=== PATIENT | male | born 1990 | race Caucasian/White ===

== ENCOUNTER 2017-04-15 20:29 | Emergency (ER) | payer OTHER ==
[2017-04-15 20:38] VITALS: PULSE 78; TEMP 98.2; BMI 47.6
[2017-04-15] MEDS ORDERED: SODIUM CHLORIDE 1,000 ML IV STA ×2 (20:51→22:23)
--- NOTE | 2017-04-15 20:52 | PDOC ---
History of Present Illness - General Chief Complaint: Blood Sugar Problem Stated Complaint: EVALUATION Time Seen by Provider: 04/15/17 20:40 History Source: Patient Exam Limitations: No Limitations - History of Present Illness Initial Comments: 04/15/17 23:54 27-year-old male with history of diabetes (poorly compliant with his medication regimen), presents to the ER for elevated blood sugar and paresthesias of the left flank on the day of arrival. Patient denies chest pain/shortness of breath/ nausea/vomiting/diarrhea/fever/chills. Patient denies cutaneous outbreak at the site of paresthesias. There is no previous history of herpes zoster. REVIEW OF SYSTEMS CONSTITUTIONAL: No fever, no chills, no fatigue EYES: No visual changes ENT: No ear pain, no sore throat CARDIOVASCULAR: No chest pain, no palpitations RESPIRATORY: No cough, no SOB GI: No abdominal pain, no nausea, no vomiting, no constipation, no diarrhea GENITOURINARY: No dysuria, no frequency, no hematuria MUSKULOSKELETAL: No backpain, no joint pain, no myalgias SKIN: No rash NEURO: No headache; + left flank paresthesia; EXAMINATION CONSTITUTIONAL: Awake and alert; Well-appearing; in no apparent distress HEAD: Normocephalic; atraumatic EYES: PERRL; EOM intact ENMT: External appears normal; normal oropharynx NECK: Supple; non-tender; no cervical lymphadenopathy CARD: Normal S1, S2; no murmurs, rubs, or gallops RESP: Normal chest excursion with respiration; breath sounds clear and equal bilaterally; no wheezes, rhonchi, or rales ABD: Soft, non-distended; non-tender; no palpable organomegaly, no palpable hernias EXT: Normal ROM in all four extremities; non-tender to palpation; distal pulses intact SKIN: Warm, dry, no rash NEURO: No focal neurological deficiencies. Past History - Past Medical History Allergies/Adverse Reactions: Allergies Allergy/AdvReac Type Severity Reaction Status Date / Time No Known Allergies Allergy Verified 11/14/15 22:10 Home Medications: Ambulatory Orders Metformin HCl 500 mg PO ONCE 04/15/17 Metformin HCl [Glucophage -] 1,000 mg PO BID #40 tablet 04/16/17 Asthma: Yes Diabetes: Yes Thyroid Disease: Yes - Immunization History Immunization Up to Date: No - Suicide/Smoking/Psychosocial Hx Smoking History: Never smoked Have you smoked in the past 12 months: No Hx Alcohol Use: No Drug/Substance Use Hx: No Substance Use Type: None *Physical Exam - Vital Signs Last Vital Signs Temp Pulse Resp BP Pulse Ox 98.2 F 78 20 151/100 99 04/15/17 20:35 04/15/17 20:35 04/15/17 20:35 04/15/17 20:35 04/15/17 20:35 ED Treatment Course - LABORATORY CBC & Chemistry Diagram: 04/15/17 21:00 04/15/17 21:00 Medical Decision Making - Medical Decision Making 04/15/17 23:58 Patient is a morbidly [place] 27-year-old male with history of diabetes who is poorly compliant with his medication regimen presented to the ER with hyperglycemia and left flank patchy paresthesias. EKG reveals no evidence of ischemia. Physical exam reveals no evidence of a vesicular rash. There is an isolated approximately 4 x 4 centimeters area of paresthesia located along the posterior axillary line within the intercostal space of T8-T10. CBC is within normal limit. CMP reveals hyperglycemia but no evidence of increased anion gap or any other electrolyte disturbances. Patient received IV fluids and insolent. I do not suspect DKA at this time. Will discharge with metformin with endocrinology follow-up. *DC/Admit/Observation/Transfer Diagnosis at time of Disposition: Hyperglycemia, History of paresthesia - Discharge Dispostion Disposition: HOME Condition at time of disposition: Stable - Referrals Referrals: Preston Carbajal MD [Staff Physician] - - Patient Instructions Printed Discharge Instructions: DI for Hyperglycemia -- Adult
[2017-04-15 21:10] LABS: BASOPHIL 0.7 % (0-2.0); EOSINOPHIL 2.5 % (0-4.5); MCH 26.8 pg (25.7-33.7); MCHC 33.6 g/dl (32.0-35.9); MEAN CELL VOLUME 79.9 fl (80-96); MEAN PLT VOLUME 9.2 fl (7.5-11.1); PLATELET COUNT 278 K/MM3 (134-434); RDW 13.9 % (11.9-15.9); WHITE BLOOD COUNT 8.1 K/mm3 (4.0-10.0)
[2017-04-15 21:13] LABS: URINE APPEARANCE CLEAR; URINE BILIRUBIN NEGATIVE (NEGATIVE); URINE BLOOD NEGATIVE (NEGATIVE); URINE COLOR STRAW; URINE GLUCOSE (UA) 3+ (NEGATIVE); URINE KETONE NEGATIVE (NEGATIVE); URINE NITRITE NEGATIVE (NEGATIVE); URINE PROTEIN NEGATIVE (NEGATIVE); URINE UROBILINOGEN NEGATIVE mg/dL (0.2-1.0)
[2017-04-15 22:00] LABS: ALBUMIN 3.8 g/dl (3.4-5.0); ALK PHOS 124 U/L (45-117); ANION GAP 8 (8-16); BILIRUBIN,TOTAL 0.5 mg/dL (0.2-1.0); CALCIUM 9.2 mg/dL (8.5-10.1); CO2 28 mmol/L (21-32); CREATININE 0.9 mg/dL (0.7-1.3); MAGNESIUM 2.2 mg/dL (1.8-2.4); SGOT/AST 24 U/L (15-37); SGPT/ALT 51 U/L (12-78)
[2017-04-15 22:03] LABS: GLUCOSE,RANDOM 441 mg/dL (74-106)
[2017-04-15] MEDS ORDERED: INSULIN REGULAR HUMAN 100 UNITS/ML *VIAL SQ ONE (22:23)
[2017-04-15 23:16] LABS: ACETONE SERUM NEGATIVE (NEGATIVE)
[2017-04-15 23:22] LABS: URINE LEUK ESTERASE Negative (NEGATIVE)
[2017-04-15 23:37] VITALS: BP 119/80
--- NOTE | 2017-04-16 09:05 | EKG ---
Test Reason : Blood Pressure : / mmHG Vent. Rate : 069 BPM Atrial Rate : 069 BPM P-R Int : 156 ms QRS Dur : 090 ms QT Int : 376 ms P-R-T Axes : 042 012 035 degrees QTc Int : 402 ms NORMAL SINUS RHYTHM WITH SINUS ARRHYTHMIA NORMAL ECG WHEN COMPARED WITH ECG OF 14-NOV-2015 22:37, NO SIGNIFICANT CHANGE WAS FOUND Confirmed by JACKI SCOTT MD ([id number]) on 04/16/2017 9:04:59 AM Referred By: Confirmed By:JACKI SCOTT MD
== END 2017-04-16 00:08 | disposition home or self-care (01) ==
LOC: JER 20:29
PROC: 3E013VG Introduction of Insulin into Subcutaneous Tissue, Percutaneous Approach (ICD-10-PCS; principal; 2017-04-15)
DX: E11.65 Type 2 diabetes mellitus with hyperglycemia (principal); Z79.84 Long term (current) use of oral hypoglycemic drugs; Z91.14 Patient's other noncompliance with medication regimen; E66.01 Morbid (severe) obesity due to excess calories; Z68.42 Body mass index [BMI] 45.0-49.9, adult
CPT/HCPCS: 36415; 80053; 81003; 82009; 83036; 83735; 85025; 93005; 93010; 96360; 96361; 96372; 99282-25

== ENCOUNTER 2022-12-01 02:21 | Emergency (ER) | payer OTHER ==
[2022-12-01 02:52] VITALS: BP 140/89; PULSE 95; RESP 20; TEMP 98.1; BMI 47.0
[2022-12-01 03:22] LABS: BASO % 1.3 % (0-2.0); EOS % 3.1 % (0-4.5); HEMATOCRIT 42.2 % (35.4-49); LYMPH % 31.3 % (8-40); MCH 25.3 pg (25.7-33.7); MCHC 33.1 g/dl (32.0-35.9); MEAN CELL VOLUME 76.4 fl (80-96); MEAN PLT VOLUME 8.5 fl (7.5-11.1); MONO % 5.9 % (3.8-10.2); NEUT % 58.4 % (42.8-82.8); PLATELET COUNT 319 10^3/uL (134-434); RBC 5.52 M/mm3 (4.00-5.60); RDW 15.2 % (11.9-15.9); WHITE BLOOD COUNT 9.1 K/mm3 (4.0-10.0)
[2022-12-01 03:41] LABS: POTASSIUM 4.4 mmol/L (3.5-5.1)
[2022-12-01 03:43] LABS: CALCIUM 8.8 mg/dL (8.5-10.1)
[2022-12-01 03:44] LABS: ALBUMIN 3.5 g/dl (3.4-5.0); BLOOD UREA NITROGEN 15.4 mg/dL (7-18)
[2022-12-01 03:47] LABS: CREATININE 0.9 mg/dL (0.55-1.3)
[2022-12-01 03:49] LABS: BILIRUBIN,TOTAL 0.3 mg/dL (0.2-1); TOT PROT 6.8 g/dl (6.4-8.2)
== END 2022-12-01 04:41 | disposition home or self-care (01) ==
LOC: JER 02:21
DX: R42 Dizziness and giddiness (principal); R00.2 Palpitations; G47.30 Sleep apnea, unspecified; I10 Essential (primary) hypertension; Z87.2 Personal history of diseases of the skin and subcutaneous tissue
CPT/HCPCS: 36415; 71046-TC-FY; 80053; 82962; 84443; 84484; 85025; 93005; 93010; 99285-25